=== PATIENT | female | born 1970 | race Caucasian/White ===

== ENCOUNTER 2017-12-24 18:55 | Emergency (ER) | END 2017-12-24 23:30 | disposition home or self-care (01) ==

== ENCOUNTER 2018-04-24 07:04 | Day surgery (SDC) | END 2018-04-24 14:30 | disposition home or self-care (01) ==

== ENCOUNTER 2018-07-03 06:00 | Day surgery (SDC) | payer OTHER ==
[2018-07-01 14:21] VITALS: BMI 56.9
--- NOTE | 2018-07-02 18:34 | PREOPHP ---
DATE OF ADMISSION: 07/03/2018 HISTORY OF PRESENT ILLNESS: This 47-year-old patient is going to be admitted for diagnostic arthrosc opy, examination under general anesthesia, SLAP repair, Bankart repair, cuff repair, acromioplasty an d synovectomy of the right shoulder. This patient has been experiencing shoulder pain for quite a while. Conservative treatment resulted in limited benefit to the patient, and patient has requested surgical intervention. PAST MEDICAL HISTORY: Unremarkable. SOCIAL HISTORY: Nonsmoker, nondrinker. FAMILY HISTORY: Negative. ALLERGIES: NO HISTORY OF ALLERGY TO MEDICATION. MEDICATIONS: 1. . 2. Amlodipine. PREVIOUS SURGERY: Knee surgery arthroscopically for the left knee. PHYSICAL EXAMINATION: VITAL SIGNS: Height of 5 feet 3 inches, 155 pounds. SKIN: Within normal limits. EENT: PERRLA. HEAD AND NECK: Normocephalic. Trachea midline. Bilateral symmetrical carotid pulses. No mass. No bruit. No lymphadenopathy. CARDIOVASCULAR SYSTEM: Normal sinus rhythm. S1, S2 normal. No murmur. No JVD. No peripheral dom a. LUNGS: Clear. ABDOMEN: Soft, scaphoid. No organomegaly. No mass. Bowel sounds present. GENITOURINARY AND RECTAL: Not done. Not pertinent to this admission. MUSCULOSKELETAL: Head and neck unremarkable. Upper extremities normal except for right shoulder. R josé miguel of motion about 90%. There is positive impingement, positive [place] test. There is tenderness over the anterior glenohumeral joint, subacromial space. The spine and both lower extremities symme trical and normal. IMAGING STUDY: MRI of the right shoulder indicates severe tendinopathy of the supraspinatus tendon w ith some 50% thickness on the bursal surface, moderate subscapularis tendinopathy. DIAGNOSES: 1. Probable right shoulder instability. 2. Superior labral anterior-posterior lesion. 3. Bankart lesion. 4. Synovitis. 5. Rotator cuff tear. PLAN: Treatment plan, alternatives, risks, benefits discussed. The patient understands possible com plications from surgery such as infection, bleeding, nerve damage, vascular damage, possibility of de ep venous thrombosis, pulmonary embolism, hypersensitivity from medication, even . [place] result may not be obtained depending on actual findings, known or unknown factor or factors. No guarantee is being made. Dictated By: CAMILA MENDOZA/VALENTIN Conf#: [id number] DID#: [id number]
[2018-07-03] VITALS (12 sets, daily range): BP systolic 86–100; BP diastolic 52–69; PULSE 62–70; RESP 13–18; Ht 165.1 cm; Wt 68.8 kg
[~2018-07-03] VITALS: Ht 165.1 cm; Wt 68.8 kg
[~2018-07-03 06:00] MED LIST: AMLO5TAB4 PO; CEFAZOLIN 1 GM/50 ML (PMX) 50 ML IVPB ONE; LISI10TA2 PO; MAXZ25 PO
[2018-07-03] MEDS ORDERED: EPINEPHrine 1 MG/ML 30 ML INJ ONE (06:46)
[2018-07-03] MEDS ORDERED: morphine SULFATE/PF (10 MG/10 ML) INJ ONE (06:48)
[2018-07-03] MEDS ORDERED: SODIUM CL BACTERIOSTATIC 30 ML INJ ONE (06:55)
[2018-07-03] MEDS ORDERED: CARV12.579 PO (06:58)
[2018-07-03] MEDS ORDERED: BENA10TA4 PO (06:58)
[2018-07-03] MEDS ORDERED: AMLO-147 PO (06:58)
--- NOTE | 2018-07-03 07:13 | PREAC ---
Date/Time of Note Date/Time of Note DATE: 07/03/18 TIME: 07:13 Anesthesia Eval and Record Evaluation Time Pre-Procedure Interview DATE: 07/03/18 TIME: 07:13 Age 47 Sex female NPO: 8 hrs Preoperative diagnosis Right shoulder SLAP and Bankart lesion, rotator cuff tear Planned procedure Operative arthroscopy, SLAP and Bankart repair, rotator cuff repair, acromioplasty, synovectomy Past Medical History Past Medical History: Includes Cardio: HTN Surgery & Anesthesia Issues No known issue Meds Anticoagulation: No Beta [place] within 24 hr: Yes Reported Medications Amlodipine Besylate* (Amlodipine Besylate*) 10 Mg Tablet, 10 MG PO DAILY, #30 TAB 07/03/18 Carvedilol* (Carvedilol*) 12.5 Mg Tablet, 12.5 MG PO BID, #60 TAB 07/03/18 Benazepril Hcl* (Benazepril Hcl*) 10 Mg Tablet, 10 MG PO DAILY, #30 TAB 07/03/18 Triamterene/Hctz* (Maxzide (37.5-25)*) 1 Each Tablet, 1 EACH PO DAILY, #30 TAB 12/24/17 Discontinued Reported Medications Lisinopril* (Lisinopril*) 10 Mg Tablet, 10 MG PO DAILY, #30 TAB 07/01/18 Amlodipine Besylate* (Norvasc*) 5 Mg Tablet, 10 MG PO DAILY, TAB 04/24/18 Meds reviewed: Yes Allergies Coded Allergies: No Known Allergy (Unverified , 07/03/18) Allergies Reviewed: Yes Labs/Studies Labs Reviewed: Reviewed by anesthesiologist test: N/A (s/p hysterectomy) Pre-procedure Exam Airway: Adequate mouth opening Mallampati: Mallampati I Teeth: Normal Lung: Normal Heart: Normal ASA Physical Status ASA physical status: 2 Emergency: None Planned Anesthetic General/MAC: ETT, LMA Planned Pain Management Single shot nerve block, Parenteral pain med Pre-operative Attestations Prior to commencing anesthesia and surgery, the patient was re-evaluated, there was verification of: *The patient's identity *The results of appropriate recent lab work and preoperative vital signs *The above evaluation not changing prior to induction *Anesthetic plan, risk benefits, alternative and complications discussed with patient/family; questions answered; patient/family understands, accepts and wishes to proceed. LESLY ALVAREZ MD Jul 03, 2018 07:13
[2018-07-03] MEDS ORDERED: PROPOFOL 20 ML ONE (07:37)
[2018-07-03] MEDS ORDERED: NEOSTIGMINE 3 MG/3 ML SYRINGE ONE (07:37)
[2018-07-03] MEDS ORDERED: GLYCOPYRROLATE 0.4 MG INJ ONE ×2 (07:37→10:29)
[2018-07-03] MEDS ORDERED: SUCCINYLCHOLINE CHLORIDE 100 MG/5 ML SYG IV ONE (07:37)
[2018-07-03] MEDS ORDERED: LIDOCAINE 2% (SDV) 5 ML INJ ONE (07:37)
[2018-07-03] MEDS ORDERED: ROCURONIUM 50 MG INJ ONE (07:37)
[2018-07-03] MEDS ORDERED: ROPIVACAINE 0.5 % 30 ML VIAL ONE (07:38)
[2018-07-03] MEDS ORDERED: MIDAZOLAM 1 MG/ML 2 ML INJ ONE (07:42)
[2018-07-03] MEDS ORDERED: CEFAZOLIN 1 GM INJ ONE (08:05)
[2018-07-03] MEDS ORDERED: ONDANSETRON 4 MG INJ ONE (10:44)
[2018-07-03] MEDS ORDERED: METOCLOPRAMIDE 10 MG INJ ONE (10:44)
--- NOTE | 2018-07-03 10:59 | SIPON ---
Date/Time of Note Date/Time of Note DATE: 07/03/18 TIME: 10:53 Operative Report Preoperative Diagnosis Slap, Bankart lesion, synovitis and cuff tear right shoulder Postoperative Diagnosis The same Operation/Procedure Performed Diagnostic scope, EUA, SLAP trimming, Bankart repair, synovectomy, Subscap and cuff repair Surgeon Camila Izaguirre MD clinical data assistant Russ Anesthesia: general Estimated blood loss: minimal Transfusion Required none Specimen None Grafts/Implants none Complications none CAMILA IZAGUIRRE MD Jul 03, 2018 10:59
[2018-07-03] MEDS ORDERED: OXYCODONE/ACETAMINOPHEN (5/325) TAB PO PRN ×2 (11:00)
[2018-07-03] MEDS ORDERED: EPHEDrine SULFATE 50 MG/5 ML SYG IV PRN (11:00)
[2018-07-03] MEDS ORDERED: hydrALAzine 20 MG INJ IV PRN (11:00)
[2018-07-03] MEDS ORDERED: MIDAZOLAM 1 MG/ML 2 ML INJ IV PRN (11:00)
[2018-07-03] MEDS ORDERED: MEPERIDINE 25 MG INJ IV PRN (11:00)
[2018-07-03] MEDS ORDERED: FENTAnyl 50 MCG/ML VIAL IV PRN ×3 (11:00)
[2018-07-03] MEDS ORDERED: HYDROmorphONE 1 MG/5 ML IV SYRINGE IV PRN ×3 (11:00)
[2018-07-03] MEDS ORDERED: DIPHENHYDRAMINE 50 MG INJ IV PRN (11:00)
[2018-07-03] MEDS ORDERED: METOCLOPRAMIDE 10 MG INJ IV PRN (11:00)
[2018-07-03] MEDS ORDERED: ONDANSETRON 4 MG INJ IV PRN (11:00)
[2018-07-03] MEDS ORDERED: LABETALOL HCL 20MG INJ IV PRN (11:00)
--- NOTE | 2018-07-03 11:24 | PAC ---
Date/Time of Note Date/Time of Note DATE: 07/03/18 TIME: 11:24 Post-Anesthesia Notes Post-Anesthesia Note Last documented vital signs Vital Signs Date Temp Pulse Resp B/P (MAP) Pulse Ox O2 O2 Flow FiO2 Time Delivery Rate 07/03/18 98.0 10:56 07/03/18 67 18 98/52 (67) 99 Room Air 07:09 Activity: WNL Respiratory function: WNL Cardiovascular function: WNL Mental status: Baseline Pain reasonably controlled: Yes Hydration appropriate: Yes Nausea/Vomiting absent: Yes LESLY ALVAREZ MD Jul 03, 2018 11:24
--- NOTE | 2018-07-03 12:38 | OPR ---
DATE OF OPERATION: 07/03/2018 PREOPERATIVE DIAGNOSIS: SLAP lesion, Bankart lesion, synovitis, rotator cuff tear PREOPERATIVE DIAGNO SIS: Bankart lesion, synovitis, rotator cuff tear of right shoulder. POSTOPERATIVE DIAGNOSIS: Type 1 SLAP lesion, anterior instability capsule and redundancy, 70% tear of the subscapularis. A complete tear of the supraspinatus tendon, synovitis of right shoulder . ANESTHESIA: General with shoulder block. ANESTHESIOLOGIST: Dr. Guillory. PROCEDURE: Diagnostic arthroscopy, examination under general anesthesia, type 1 SLAP lesion, Bankart repair, synovectomy and subscapularis repair, rotator cuff repair, right shoulder. CHAIRMAN OF THE BOARD: alanna Vinson scrub. BLEEDING: Minimal. COMPLICATIONS: None. OPERATIVE PROCEDURE: The patient was transferred to the operating room and placed on the table in enriquez pine position. General anesthesia was induced and the shoulder block. Patient was put on left decub itus position. Axillary roll was applied. Bony areas padded. Beanbag was deflated. Right shoulder was prepped and draped in routine fashion. During this procedure, we used Arthrex shoulder galvan w ith total of 10 pounds in acromion space, total of 10 pounds on glenohumeral joint. Landmarks were m arked through posterior portal glenohumeral joint was entered. Anterolateral port cannula was establ ished. Examination general anesthesia with the scope inside the shoulder indicated she has gin ant erior instability with 35%. The humeral head and the center of the humeral head was almost sitting i n the anterior edge of the glenoid. There was fraying over there and there was type 1 SLAP lesion pr esent, which was trimmed. Synovitis was present, synovectomy was performed. Subscapularis showed al most an 80% tear of the main fibers being half way between the attachment and half way between visual ization originating from the posterior. There was a stump of supraspinatus that could be seen from i nside. Biceps tendon by itself was relatively normal. The rotator cuff was intact. Anterior labrum was small but attached. Therefore, we pulled the suture through the stump of the subscapularis and using PushLock and it was reattached to its original attachment on a bleeding surface. Then we used suture lasso and we pulled the capsule redundancy up and reattached at the 2:30 position and incorpor ated into posterior part of the existing labrum. With this maneuver, the humeral head and became sta ble on the glenoid. A synovectomy was done with the ArthroCare Bovie with coagulation already. We e ntered through a posterior portal into subacromial space since there was downsloping of the anterolat eral part of the acromion and therefore formal acromioplasty was performed. Synovitis present. Agai n, was taken care of with Arthrocare Bovnatan and shaver, and we noticed that the entire supraspinatus a nd at least more than half the infraspinatus was torn from its attachment. Therefore, the used two F iberWires inserted into supraspinatus inferiorly, superiorly and also infraspinatus. We used a Swive Lock and some of the bone was soft. We under-sized the thumb at man angle. The abrasion over t he footprint was already done to a bleeding surface. The sutures were delivered. Two SwiveLock and putting tension on the sutures. Rotator cuff was approximated to the footprint and SwiveLock was ins erted on bleeding surface and we obtained a tight, almost waterproof repair. Excess sutures were cut to the PushLock and Swivel lock, each stage. Hemostasis obtained with the help of Arthrocare Chasidy d uring the procedure. The portals were closed with skin anastasiia, 10 mg Duramorph mixed with 10 mL of injectable saline was half injected into the glenohumeral joint and half into the subacromial space. Sterile dressing was applied. Shoulder immobilizer was placed on. General anesthesia was stopped. Patient was taken to recovery room in stable condition. Dictated By: CAMILA MENDOZA/VALENTIN Conf#: [id number] DID#: [id number]
[2018-07-04] MEDS ORDERED: HYDR-4011 PO (03:51)
== END 2018-07-03 12:55 | disposition home or self-care (01) ==
LOC: SDS 06:00
PROVIDERS: ATTEND Internal Medicine Endocrinology, Diabetes & Metabolism
DX: S43.431D Superior glenoid labrum lesion of right shoulder, subsequent encounter (principal); S46.811D Strain of other muscles, fascia and tendons at shoulder and upper arm level, right arm, subsequent encounter; X58.XXXD Exposure to other specified factors, subsequent encounter; M65.811 Other synovitis and tenosynovitis, right shoulder
CPT/HCPCS: 29807; 29827; C1713; J0171; J0690; J2250; J2274; J2405; J2710; J2765; J2795; Z7512; Z7610

== ENCOUNTER 2018-07-04 01:51 | Emergency (ER) | payer OTHER ==
[~2018-07-04] VITALS: Wt 72.6 kg
[~2018-07-04 01:51] MED LIST changes: +AMLO-147 PO; -AMLO5TAB4 PO; +BENA10TA4 PO; +CARV12.579 PO; -CEFAZOLIN 1 GM/50 ML (PMX) 50 ML IVPB ONE; -LISI10TA2 PO
[2018-07-04 02:04] VITALS: BP 137/70; PULSE 73; RESP 18
[2018-07-04] MEDS ORDERED: KETOROLAC 60 MG INJ IM STA (03:50)
[2018-07-04] MEDS ORDERED: HYDR-4011 PO (03:51)
[2018-07-04] MEDS ORDERED: HYDROCODONE/APAP (5/325) TAB PO ONE (04:00)
--- NOTE | 2018-07-04 04:31 | ERD ---
ER Documentation Chief Complaint Chief Complaint R ARM PAIN S/P SURGERY TODAY HPI This is a 47-year-old female who presents to ED after having a shoulder repair surgery earlier today with complaints of shoulder pain. Patient states that she was only given ibuprofen for pain for post surgery. Patient denies any tin gling, numbness, lack sensation, fever, chills, purulent drainage coming from wound, redness, swelling and other symptoms. Patient states that she had an arthroscopic done today with a SLAP lesion and rotator cuff repair ROS All systems reviewed and are negative except as per history of present illness. Medications Home Meds Active Scripts Hydrocodone/Acetaminophen (Cedar 5-325 Tablet) 1 Each Tablet, 1 TAB PO Q6H PRN for PAIN, #7 TAB Prov:NIXON BARNES PA-C 07/04/18 Reported Medications Amlodipine Besylate* (Amlodipine Besylate*) 10 Mg Tablet, 10 MG PO DAILY, #30 TAB 07/03/18 Carvedilol* (Carvedilol*) 12.5 Mg Tablet, 12.5 MG PO BID, #60 TAB 07/03/18 Benazepril Hcl* (Benazepril Hcl*) 10 Mg Tablet, 10 MG PO DAILY, #30 TAB 07/03/18 Triamterene/Hctz* (Maxzide (37.5-25)*) 1 Each Tablet, 1 EACH PO DAILY, #30 TAB 12/24/17 Discontinued Reported Medications Lisinopril* (Lisinopril*) 10 Mg Tablet, 10 MG PO DAILY, #30 TAB 07/01/18 Amlodipine Besylate* (Norvasc*) 5 Mg Tablet, 10 MG PO DAILY, TAB 04/24/18 Allergies Allergies: Coded Allergies: No Known Allergy (Unverified , 07/03/18) PMhx/Soc Medical and Surgical Hx: pt denies Surgical Hx Anesthesia Reaction: No Hx Neurological Disorder: No Hx Respiratory Disorders: No Hx Cardiac Disorders: Yes (HTN) Hx Psychiatric Problems: No Hx Miscellaneous Medical Probl: No Hx Alcohol Use: Yes (SOMETIMES ) Hx Substance Use: No Hx Tobacco Use: No Smoking Status: Never smoker Physical Exam Vitals Vital Signs Date Temp Pulse Resp B/P (MAP) Pulse Ox O2 O2 Flow FiO2 Time Delivery Rate 07/04/18 97.5 73 18 137/70 96 02:04 (92) Physical Exam Const: No acute distress Head: Atraumatic Eyes: Normal Conjunctiva ENT: Normal External Ears, Nose and Mouth. Neck: Full range of motion. No meningismus. Resp: Clear to auscultation bilaterally Cardio: Regular rate and rhythm, no murmurs Skin: There is no redness, swelling, purulent drainage coming from wound, no evidence of infection, no petechiae or rashes Ext: No cyanosis, or edema Neur: Awake and alert Psych: Normal Mood and Affect Results 24 hrs Current Medications Medications Dose Sig/Lisa Start Time Status Last (Trade) Ordered Route PRN Stop Time Admin Dose Reason Admin Ketorolac 60 mg ONCE STAT 07/04/18 DC 07/04/18 Tromethamine IM 03:50 04:08 (Toradol) 07/04/18 03:51 1 tab ONCE ONCE 07/04/18 DC 07/04/18 Acetaminophen PO 04:00 04:07 / 07/04/18 04:01 Hydrocodone Bitart (Cedar (5/325)) Procedures/MDM ER COURSE: The patient was given Cedar The medication was well tolerated and the patient reports improvement in symptoms. The patient was stable throughout ED course. I kept the patient and/or family informed of laboratory and diagnostic imaging results throughout the emergency room course. The patient was promptly evaluated and a treatment plan was devised based on H&P and other data. This plan was discussed with the patient who agreed and had no further questions or concerns prior to discharge. MEDICAL DECISION MAKING: This is a 47-year-old female who presents ED with complaints of right shoulder pain status post surgery earlier today. Patient states that she was not given pain meds to take post surgery besides ibuprofen. Patient states that she is unable to sleep because of the pain. Patient was given Cedar in the emergency department and reports feeling better. There is no evidence of infection from surgery regularly today. Patient was advised to follow-up with her orthopedic surgeon in the next 24 hours regarding this pain. History and physical examination other data not consistent with emergent processes including but not limited to ischemia, neurovascular injury, compartment syndrome, septic joint, avascular necrosis, osteomyelitis, necrotizing fasciitis, septic joint, septic arthritis, or other emergent conditions. Patient's vitals are stable and can be managed outpatient with close follow-up. Advised patient to follow-up with primary care in the next 48 hours. Return to ED with any worsening symptoms. DISPOSITION PLAN: We discussed follow up with the patient's primary care doctor within 24 to 48 hours. Patient counseled regarding my diagnostic impression and care plan. Prior to discharge all questions answered. Pt agrees with treatment plan and understands strict return precautions. Precautionary instructions provided including instructions to return to the ER if not improving or for any worsening or changing symptoms or concerns. SPECIALIST FOLLOW UP RECOMMENDED: None Patient has been advised to follow up with primary care in 1-2 days. Disclaimer: Inadvertent spelling and grammatical errors are likely due to EHR/dictation software use and do not reflect on the overall quality of patient care. Also, please note that the electronic time recorded on this note does not necessarily reflect the actual time of the patient encounter. Departure Diagnosis: Primary Impression: Pain of right arm Condition: Stable Patient Instructions: Pain Management Referrals: REPLACED BY [facility] YOU HAVE RECEIVED A MEDICAL SCREENING EXAM AND THE RESULTS INDICATE THAT YOU DO NOT HAVE A CONDITION THAT REQUIRES URGENT TREATMENT IN THE EMERGENCY DEPARTMENT. FURTHER EVALUATION AND TREATMENT OF YOUR CONDITION CAN WAIT UNTIL YOU ARE SEEN IN YOUR DOCTORS OFFICE WITHIN THE NEXT 1-2 DAYS. IT IS YOUR RESPONSIBILITY TO MAKE AN APPOINTMENT FOR FOLOW-UP CARE. IF YOU HAVE A PRIMARY DOCTOR --you should call your primary doctor and schedule an appointment IF YOU DO NOT HAVE A PRIMARY DOCTOR YOU CAN CALL OUR PHYSICIAN REFERRAL HOTLINE AT IF YOU CAN NOT AFFORD TO SEE A PHYSICIAN YOU CAN CHOSE FROM THE FOLLOWING [facility] CLINICS [facility] [address] [facility]. [facility] [address] [facility] [facility] [address] [facility] [facility] [address] [facility] [facility] [address] [facility]. [facility]. [address] Additional Instructions: Patient advised patient advised to return to the ED immediately for new or worsening symptoms. Patient advised to follow up with primary care provider in the next 24-48 hours. Patient verbalized understanding and agrees with treatment plan and course of action. If patient has no primary care they may follow up with one of the community clinics listed on the following page or one of the options listed below [facility] + [facility] [address] [place] [id number] or [facility] [address] [place] [address] or [facility] [address] [place] [address] NIXON BARNES PA-C Jul 04, 2018 04:31
== END 2018-07-04 04:20 | disposition home or self-care (01) ==
LOC: FTE 01:51
DX: M79.601 Pain in right arm (principal); I10 Essential (primary) hypertension
CPT/HCPCS: 96372; J1885; Z7502; Z7610

== ENCOUNTER 2018-09-02 14:40 | Emergency (ER) | payer OTHER ==
[~2018-09-02] VITALS: Ht 167.6 cm; Wt 73.4 kg
[~2018-09-02 14:40] MED LIST changes: +HYDR-4011 PO
[2018-09-02 14:57] VITALS: Ht 167.6 cm; Wt 73.4 kg
--- NOTE | 2018-09-02 18:51 | ERD ---
ER Documentation Chief Complaint Chief Complaint Hypertension HPI The patient is a 48-year-old female, presenting to the ER because of elevated blood pressure.. He stopped taking her medication, Norvasc 10 mg daily , Maxzide 37.5 mg daily, Coreg 12.5 mg twice daily and benazepril 10 mg daily for the last week. He complains of vague frontal occipital headache for the last 4 hours, denies syncope, near syncope, neck pain, chest pain, dyspnea, abdominal pain, vomiting with this, diarrhea. She does not smoke nor drink Past medical history: Hypertension, medical noncompliance Past surgical history: Hysterectomy, left knee and right shoulder arthroscopy ROS All systems reviewed and are negative except as per history of present illness. Medications Home Meds Reported Medications Amlodipine Besylate* (Amlodipine Besylate*) 10 Mg Tablet, 10 MG PO DAILY, #30 TAB 07/03/18 Carvedilol* (Carvedilol*) 12.5 Mg Tablet, 12.5 MG PO BID, #60 TAB 07/03/18 Benazepril Hcl* (Benazepril Hcl*) 10 Mg Tablet, 10 MG PO DAILY, #30 TAB 07/03/18 Triamterene/Hctz* (Maxzide (37.5-25)*) 1 Each Tablet, 1 EACH PO DAILY, #30 TAB 12/24/17 Discontinued Scripts Hydrocodone/Acetaminophen ([place] 5-325 Tablet) 1 Each Tablet, 1 TAB PO Q6H PRN for PAIN, #7 TAB Prov:NIXON BARNES PA-C 07/04/18 Allergies Allergies: Coded Allergies: No Known Allergy (Unverified , 09/02/18) PMhx/Soc Anesthesia Reaction: No Hx Neurological Disorder: No Hx Respiratory Disorders: No Hx Cardiac Disorders: Yes (HTN) Hx Psychiatric Problems: No Hx Miscellaneous Medical Probl: No Hx Alcohol Use: Yes (SOMETIMES ) Hx Substance Use: No Hx Tobacco Use: No Physical Exam Vitals Vital Signs Date Temp Pulse Resp B/P (MAP) Pulse Ox O2 O2 Flow FiO2 Time Delivery Rate 09/02/18 84 16 159/90 19:30 (113) 09/02/18 98.4 86 17 168/122 98 Room Air 19:07 (137) 09/02/18 79 18 215/112 98 Room Air 18:32 (146) 09/02/18 97.5 90 20 130/93 97 14:57 (105) Physical Exam Const: No acute distress. Head: Atraumatic. Eyes: Normal Conjunctiva. ENT: Normal External Ears, Nose and Mouth. Neck: Full range of motion. No meningismus. Resp: Clear to auscultation bilaterally. Cardio: Regular rate and rhythm. Abd: Soft, non distended, normal bowel sounds, non tender. Skin: No petechiae or rashes. Back: No midline or flank tenderness. Ext: No cyanosis, or edema. Neur: Awake and alert. No focal deficit Psych: Normal Mood and Affect. Result Diagram: 09/02/[id number]/02/[id number] Results 24 hrs Laboratory Tests Test 09/02/18 18:59 09/02/18 19:08 09/02/18 19:10 White Blood Count 10.2 10^3/ul Red Blood Count 4.98 10^6/ul Hemoglobin 14.4 g/dl Hematocrit 44.2 % Mean Corpuscular Volume 88.8 fl Mean Corpuscular Hemoglobin 28.9 pg Mean Corpuscular 32.6 g/dl Hemoglobin Concent Red Cell Distribution Width 14.4 % Platelet Count 298 10^3/UL Mean Platelet Volume 9.4 fl Immature Granulocytes % 1.100 % Neutrophils % 59.9 % Lymphocytes % 29.1 % Monocytes % 6.2 % Eosinophils % 3.4 % Basophils % 0.3 % Nucleated Red Blood Cells % 0.0 /100WBC Immature Granulocytes # 0.110 10^3/ul Neutrophils # 6.1 10^3/ul Lymphocytes # 3.0 10^3/ul Monocytes # 0.6 10^3/ul Eosinophils # 0.4 10^3/ul Basophils # 0.0 10^3/ul Nucleated Red Blood Cells # 0.0 10^3/ul Prothrombin Time 11.6 Sec Prothrombin Time Ratio 0.9 INR International Normalized Ratio 0.84 Activated Partial Thromboplast 25.8 Sec Time Sodium Level 144 mmol/L Potassium Level 3.7 mmol/L Chloride Level 103 mmol/L Carbon Dioxide Level 28 mmol/L Anion Gap 13 Blood Urea Nitrogen 17 mg/dl Creatinine 0.74 mg/dl Est Glomerular Filtrat Rate mL/min > 60 mL/min Glucose Level 145 mg/dl Calcium Level 10.1 mg/dl Bedside Urine pH (LAB) 6.0 Bedside Urine Protein (LAB) Negative Bedside Urine Glucose (UA) Negative Bedside Urine Ketones (LAB) Negative Bedside Urine Blood Negative Bedside Urine Nitrite (LAB) Negative Bedside Urine Leukocyte Esterase Negative (L POC Beta HCG, Qualitative NEGATIVE Current Medications Medications Dose Sig/Lisa Start Time Status Last (Trade) Ordered Route PRN Stop Time Admin Dose Reason Admin Labetalol 20 mg ONCE ONCE 09/02/18 DC HCl IV 19:30 (Labetalol) 09/02/18 19:31 Procedures/MDM Brain CT is pending MEDICAL MAKING DECISION: The patient is a 48-year-old female, presenting with an acute accelerated hypertension due to medical noncompliance, blood pressure has been fluctuating and did not require any treatment emergency department, is stable for o/p follow-up The differential diagnoses considered include but are not limited to subarachnoid hemorrhage, occult trauma, CVA, meningitis, encephalitis, hypertension, tension, migraine, cluster, narcotic withdrawal, cervical spine disease. Departure Diagnosis: Primary Impression: Accelerated hypertension Condition: Good Comments If the brain CT is negative, she will be discharged I discussed the findings with the patient. I advised the patient to follow-up with the primary physician in the morning for evaluation and return if any concern. Disclaimer: Inadvertent spelling and grammatical errors are likely due to EHR/dictation software use and do not reflect on the overall quality of patient care. Also, please note that the electronic time recorded on this note does not necessarily reflect the actual time of the patient encounter. MELANIE PENNINGTON MD Sep 02, 2018 18:51
[2018-09-02] MEDS: LABETALOL HCL 20MG INJ IV ONE ×2 (19:29→19:31)
[2018-09-02] MEDS ORDERED: AMLODIPINE 10 MG TAB PO ONE (21:00)
[2018-09-02 21:35] VITALS: BP 143/94; PULSE 68; RESP 17
== END 2018-09-02 21:37 | disposition home or self-care (01) ==
LOC: E/R 14:40
DX: I10 Essential (primary) hypertension (principal); R40.2142 Coma scale, eyes open, spontaneous, at arrival to emergency department; R40.2362 Coma scale, best motor response, obeys commands, at arrival to emergency department; R40.2252 Coma scale, best verbal response, oriented, at arrival to emergency department
CPT/HCPCS: 36415; 70450; 80048; 81003; 81025; 85025; 85610; 85730; Z7502; Z7610

== ENCOUNTER 2019-02-28 15:37 | Emergency (ER) | payer OTHER ==
[~2019-02-28] VITALS: Ht 170.2 cm; Wt 72.1 kg
[~2019-02-28 15:37] MED LIST changes: -HYDR-4011 PO
[2019-02-28 15:55] VITALS: BP 155/113; PULSE 96; RESP 16; Ht 170.2 cm; Wt 72.1 kg
== END 2019-02-28 17:06 | disposition home or self-care (01) ==
LOC: E/R 15:37
DX: S89.92XA Unspecified injury of left lower leg, initial encounter (principal); I10 Essential (primary) hypertension; W18.39XA Other fall on same level, initial encounter; Y92.9 Unspecified place or not applicable
CPT/HCPCS: 73550; Z7502; 73552